=== PATIENT | male | born 1960 | race Caucasian/White ===

== ENCOUNTER 2024-05-23 08:01 | Day surgery (SDC) | payer OTHER ==
[~2024-05-23] VITALS: Ht 158.8 cm; Wt 75.7 kg
[2024-05-23] MEDS ORDERED: fentaNYL citrate 0.05 MG/ML VIAL ONE (08:42)
[2024-05-23] MEDS: fentaNYL citrate 0.05 MG/ML VIAL IVP ONE (08:43)
[2024-05-23] MEDS: LIDOCAINE 2% 100 MG/5 ML UJET TP ONE (08:48)
== END 2024-05-23 10:00 | disposition home or self-care (01) ==
LOC: MDS 08:01 → MMU 08:03 → MDS 10:00
PROVIDERS: ATTEND Internal Medicine Gastroenterology
DX: Z12.11 Encounter for screening for malignant neoplasm of colon (principal); K57.30 Diverticulosis of large intestine without perforation or abscess without bleeding; K64.4 Residual hemorrhoidal skin tags; I10 Essential (primary) hypertension; E11.9 Type 2 diabetes mellitus without complications; Z79.82 Long term (current) use of aspirin; Z79.899 Other long term (current) drug therapy; Z98.890 Other specified postprocedural states
CPT/HCPCS: 45378; J3010